=== PATIENT | female | born 1960 | race Caucasian/White ===

== ENCOUNTER 2016-12-23 21:53 | Observation (INO) ==
[2016-12-24] MEDS ORDERED: Vancomycin 1,000 MG in D5% in Water 250 ML IVPB ONE (01:01)
[2016-12-24] MEDS ORDERED: 0.9 % Sodium Chloride 1,000 ML IVC ONE (01:01)
[2016-12-24] MEDS ORDERED: *HR* Morphine 2 MG/ML SYRINGE IVP ONE (01:01)
[2016-12-24] MEDS ORDERED: Ondansetron 4 MG/2 ML VIAL IVP ONE (01:01)
[2016-12-24] MEDS ORDERED: Piperacillin/Tazobactam 3.375 GM in D5% in Water (Mini-Bag+) 100 ML IVPB ONE (01:02)
--- NOTE | 2016-12-24 01:06 | Emergency Department Note ---
Disposition Clinical Impression: Hyperglycemia Cellulitis Qualifiers: Site of cellulitis: extremity Site of cellulitis of extremity: lower extremity Laterality: left Qualified Code(s): L03.116 - Cellulitis of left lower limb Disposition: Admitted As Inpatient Condition: [facility] Time of Disposition: 02:06 General Adult HPI - General Chief complaint: ED Wound/Laceration Stated complaint: Cellulitus [facility] sent her here Time Seen by Provider: 12/24/16 00:27 Source: patient, family Mode of arrival: ambulatory Limitations: no limitations Nursing Notes Reviewed: Yes Vital Signs Reviewed: Yes - History of Present Illness HPI Narrative: 56-year-old female presents for evaluation of left lower leg cellulitis. Patient states his symptoms are approximately a week ago. She has been standing at the [facility]. Patient is been wearing flip-flops. Patient notes worsening pain and redness over the past week. Areas localized the left lower leg. Also notes weeping of the left lower leg over this timeframe. Patient also noted that she stubbed her right toe and noted some redness streaking up the right lower leg. Reports subjective fevers. Denies any other systemic signs or symptoms. Abdominal pain. No chest pain stress of breath. No vomiting. States that she is unclear whether she is a diabetic as she does not follow-up with her primary care doctor. Denies any direct trauma to the left lower leg. Pain Scale: 8 - Related Data Allergies Allergy/AdvReac Type Severity Reaction Status Date / Time No Known Allergies Allergy Verified 12/23/16 22:06 All systems ED: reviewed and negative except as stated. Constitutional: Reports: as per HPI, fever Eyes: Reports: as per HPI ENT ED: Reports: as per HPI Cardiovascular: Reports: as per HPI. Denies: chest pain Respiratory: Reports: as per HPI. Denies: dyspnea Gastrointestinal: Reports: as per HPI. Denies: abdominal pain, nausea, vomiting Genitourinary: Reports: as per HPI Musculoskeletal: Reports: as per HPI Integumentary: Reports: as per HPI Neurological: Reports: as per HPI Psychiatric: Reports: as per HPI Endocrine: Reports: as per HPI Hematological/Lymphatic: Reports: as per HPI Past Medical History - Past Medical History Medical history: Reports: no medical history Psychiatric history: Reports: no psych history - Social History Smoking Status: Current every day smoker Smokeless Tobacco Status: No Alcohol use: Reports: occasionally Drug use: Reports: none Physical Exam - General Limitations: no limitations General appearance: alert, in no apparent distress - Head Head exam: atraumatic, normocephalic, normal inspection - Eye Eye exam: Present: normal appearance, EOMI - ENT ENT exam: normal exam, mucous membranes moist - Neck Neck exam: Present: normal inspection, trachea midline - Chest Chest inspection: Present: normal inspection - Respiratory Respiratory exam: Present: normal lung sounds bilaterally. Absent: respiratory distress - Cardiovascular Cardiovascular exam: Present: regular rate, normal rhythm - Abdominal Exam Abdominal exam: Present: soft, Non-Tender - Expanded Lower Extremity Exam Hip/Pelvis exam: Present: normal inspection Upper leg exam: Present: normal inspection Knee exam: Present: normal inspection Lower leg exam: Present: tenderness, swelling, erythema (Erythema localized to the left lower extremity. Used to track proximally just distal to the knee. Also notes a open wound with purulent drainage on the lateral aspect near the lateral malleolus. Neurovascularly intact. Palpable DPs. Sensation intact with motor of the metatarsals.). Absent: crepitus, Homans' sign Ankle exam: Present: tenderness, swelling, erythema. Absent: crepitus Foot/toe exam: Present: other (Small wound on the right second metatarsal with mild erythema proximally over the dorsum of the foot.) Neurovascular/Tendon exam: Present: normal capillary refill. Absent: pulse deficit, motor deficit, sensory deficit - Back Exam Back exam: Present: normal inspection - Neurological Exam Neurological exam: Present: alert, oriented X3 - Skin Skin exam: Present: warm, dry, intact, normal color Course Course Narrative: Patient seen and examined. The patient appears to have acute cellulitis of the left lower cavity. Noted to be fairly extensive. Actively draining. Patient would likely need IV antibiotics given the degree of cellulitis of her left leg. Patient labs ordered including CBC, electrolytes as well as blood cultures and lactate. Patient treated symptomatically with IV fluids and antiemetics pain control. Disposition admission. - Reevaluation(s) Reevaluation #1: The patient's resting comfortably. Time: 02:11 Vital Signs Temperature 99.0 F 12/23/16 22:06 Pulse Rate 91 12/23/16 22:06 Respiratory Rate 18 12/23/16 22:06 Blood Pressure 136/83 12/23/16 22:06 O2 Sat by Pulse Oximetry 95 09/05/17 22:06 Temperature 99.0 F 12/23/16 22:06 Pulse Rate 87 12/24/16 02:21 Respiratory Rate 16 12/24/16 02:54 Blood Pressure 106/61 12/24/16 02:54 O2 Sat by Pulse Oximetry 97 12/24/16 02:21 Oxygen Delivery Oxygen Delivery Room Air Medical Decision Making - MDM Narrative Medical decision making narrative: 56-year-old female presents for evaluation of left lower leg swelling and concerns for cellulitis. Patient signs and symptoms are consistent with cellulitis. No notable abscess. No crepitus. Is actively draining and weeping in the lateral aspect just proximal to the lateral malleolus. Patient had a plain film of the leg obtained which shows no evidence of subcutaneous gas or osteomyelitis. Patient is not aware if she has any comorbid conditions such as diabetes that she has not seen a primary care physician. Given the degree of the patient's cellulitis the patient would need monitoring as well as IV antibiotics. Patient basically lab work including blood cultures and lactate with IV antibiotics initiated in the ED. The patient was given vancomycin as well as Zosyn. - Lab Data Lab results reviewed: Yes I reviewed the patient's lab results. Result diagrams: 12/24/16 00:57 12/24/16 00:57 Lab Results 12/24/16 12/24/16 12/24/16 Range/Units 00:57 00:57 00:57 WBC 9.1 (4.3-11.1) K/mcL RBC 4.50 (3.82-4.97) M/mcL Hgb 13.1 (11.5-15.4) g/dL Hct 40.3 (35.3-44.9) % MCV 89.6 (83.0-100.0) fL MCH 29.1 (28.0-33.3) pg MCHC 32.5 (31.6-35.5) g/dL RDW 14.6 H (11.5-14.5) % Plt Count 397 (140-400) K/mcL MPV 9.7 (9.4-12.4) fL Immature Gran % 0.4 (0-4) % Seg Neutrophils % 59.7 % Lymphocytes % 29.2 % Monocytes % 9.1 % Eosinophils % 0.8 % Basophils % 0.8 % Neutrophils # 5.4 (1.6-8.9) K/mcL Lymphocytes # 2.7 (0.6-4.6) K/mcL Monocytes # 0.8 (0.0-1.3) K/mcL Eosinophils # 0.1 (0.0-0.6) K/mcL Basophils # 0.1 (0.0-0.2) K/mcL Sodium 142 (136-145) mEq/L Potassium 3.5 (3.5-4.5) mEq/L Chloride 104 (98-109) mEq/L Carbon Dioxide 28 (19-29) mEq/L BUN 4 L (7-20) mg/dL Creatinine 0.82 (0.57-1.11) mg/dL Est GFR ( Amer) > 60 (> 60) Est GFR (Non-Af Amer) > 60 (> 60) BUN/Creatinine Ratio 5 L (6-26) Glucose 127 H (70-99) mg/dL Calculated Osmolality 292 (280-300) Lactic Acid 1.3 (0.5-2.2) mmol/L Calcium 9.6 (8.6-10.8) mg/dL Total Bilirubin 0.5 (0.2-1.2) mg/dL AST 18 (5-34) Units/L ALT 15 (0-55) Units/L Alkaline Phosphatase 87 (38-126) Units/L Serum Total Protein 8.2 (6.0-8.3) g/dL Albumin 2.8 L (3.5-5.0) g/dL Globulin 5.4 H (2.4-3.5) g/dL Albumin/Globulin Ratio 0.5 L (1.1-2.2) - Radiology Data Radiology results reviewed: Yes I reviewed the patient's radiology results. Tibia/Fibula X-Ray 12/24/16 01:03 IMPRESSION: No large areas of soft tissue gas. No underlying osteomyelitis. D/ / Deandre Gunderson MD / Deandre Gunderson MD Interpreting Provider: Deandre Gunderson MD S.B[facility]A.R. - S.B.A.R. Situation: Demographics Background: Presenting Complaint Assessment: Vital Signs, Course and respsone to treatment, Patient/Family Expectation Recommendation: Barrier(s) to disposition, Recommendation based on pending studies, treatments, or consults Gerardo Report Given to: Dr. Chanel Carrillo Repor Time: 02:06 Attestation Statement - Attestation Attestation: I, Sudhir Perez, examined this patient and my medical decision-making was reviewed with the PARTS COUNTERMAN/PA/Advanced Practice Nurse/Resident Physician. I agree with the documented findings, disposition and treatment plan as described except to the extent set forth below. 56-year-old female sent in to the emergency department for concerns of rapidly progressing cellulitis. Patient states that she has had swelling and erythema of the left lower extremity for the past week however it is significantly worsened over the past 24 hours. Patient reports subjective fevers prior to arrival to the emergency department. She denies history of diabetes or other immunocompromising disorders however she does not follow with her primary care provider. Patient started on vancomycin and Zosyn in the emergency department after our initial evaluation. She felt comfortable with the plan for admission to hospital for IV antibiotics.
[2016-12-24 01:14] LABS: Basophils # 0.1 K/mcL (0.0-0.2); Basophils % 0.8 %; Eosinophils # 0.1 K/mcL (0.0-0.6); Eosinophils % 0.8 %; Hematocrit 40.3 % (35.3-44.9); Hemoglobin 13.1 g/dL (11.5-15.4); Immature Granulocytes % 0.4 % (0-4); Lymphocytes # 2.7 K/mcL (0.6-4.6); Lymphocytes % 29.2 %; Mean Corpuscular HGB Conc 32.5 g/dL (31.6-35.5); Mean Corpuscular Hemoglobin 29.1 pg (28.0-33.3); Mean Corpuscular Volume 89.6 fL (83.0-100.0); Mean Platelet Volume 9.7 fL (9.4-12.4); Monocytes # 0.8 K/mcL (0.0-1.3); Monocytes % 9.1 %; Neutrophils # 5.4 K/mcL (1.6-8.9); Platelet Count 397 K/mcL (140-400); Red Cell Distribution Width 14.6 % (11.5-14.5); Segmented Neutrophils % 59.7 %
[2016-12-24 01:22] LABS: Alanine Aminotransferase 15 Units/L (0-55); Albumin 2.8 g/dL (3.5-5.0); Albumin/Globulin Ratio 0.5 (1.1-2.2); Alkaline Phosphatase 87 Units/L (38-126); Aspartate Amino Transferase 18 Units/L (5-34); Bilirubin,Total 0.5 mg/dL (0.2-1.2); Calcium 9.6 mg/dL (8.6-10.8); Carbon Dioxide 28 mEq/L (19-29); Chloride 104 mEq/L (98-109); Globulin 5.4 g/dL (2.4-3.5); Glucose 127 mg/dL (70-99); Osmolality,Calculated 292 (280-300); Potassium 3.5 mEq/L (3.5-4.5); Sodium 142 mEq/L (136-145); Total Protein 8.2 g/dL (6.0-8.3); eGFR For African Americans > 60 (> 60); eGFR For Non-African Americans > 60 (> 60)
[2016-12-24 01:54] LABS: BUN/Creatinine Ratio 5 (6-26)
[2016-12-24 01:57] LABS: Blood Urea Nitrogen 4 mg/dL (7-20)
[2016-12-24] MEDS ORDERED: *HR* Morphine 2 MG/ML SYRINGE IVP PRN (09:40)
[2016-12-24] MEDS ORDERED: Ondansetron 4 MG/2 ML VIAL IVP PRN (09:40)
[2016-12-24] MEDS ORDERED: Naloxone 0.4 MG/ML INJ IVP PRN (09:40)
--- NOTE | 2016-12-24 09:44 | Internal Med History&Physical ---
Date of Encounter: 12/24/16 Time of Encounter: 09:44 Assessment and Plan (1) Cellulitis Current visit: Yes Status: Acute Left leg cellulitis, noted to have low-grade fever of 100.9 overnight but otherwise does not meet sepsis criteria. Received a dose of IV vancomycin and Zosyn in the emergency room. Patient does not have any other risk factors for MRSA at this time. Follow-up blood cultures, send wound culture. We will start IV cefazolin, monitor clinically. Left lower extremity elevation. Pain control with when necessary oxycodone and IV morphine. Left leg x-ray shows no evidence of subcutaneous gas or osteomyelitis. DVT prophylaxis with subcutaneous heparin. Hemoglobin A1c noted to be 5.1%. Qualifiers: Site of cellulitis: extremity Site of cellulitis of extremity: lower extremity Laterality: left Qualified Code(s): L03.116 - Cellulitis of left lower limb Internal Medicine - H&P: HPI Chief complaint: Left leg swelling Admitted From: Emergency Dept Plans for Post Hospital Care: Home History of present illness: Ms. Ruvalcaba is a 56 year old female with no significant past medical history or medical follow-up presents with complaints of redness, pain and swelling in left leg. Patient [place], has been wearing flip-flops but does not remember any injury or stepping on anything sharp. Over the last few days she noticed a shallow ulcer/wound with yellowish orange discharge in the middle of her leg with surrounding redness, swelling and pain which have gradually gotten worse and extended to involve her entire left leg. This was also associated with subjective fever and chills. No nausea, vomiting, diarrhea. It has been getting increasingly difficult to bear weight on left leg or ambulate because of the pain and swelling. Past Med Surg Social Fam HX - Past Medical History Medical history: no medical history Psychiatric history: no psych history - Past Surgical History Surgical History: no surgical history - Social History Smoking Status: Current every day smoker Packs per day: 1-2 Smokeless Tobacco Status: No Alcohol use: occasionally Drug use: none Occupational status: employed Current living situation: Home, With Family Activity Level: Independent ambulation Recent Out of Country Travel Within the Last 8 Weeks: No Exposure or Possible Exposure to Illness During Travel: No - Family History Mother Living Status: Hx Family HEENT Disorders: Yes (COPD) Father Age: 85 Living Status: Still Living Hx Family Endocrine Disorder: Yes (diabetes) Internal Medicine - H&P: Meds No Known Home Drugs 12/24/16 [History] 3 Allergy/AdvReac Type Severity Reaction Status Date / Time No Known Allergies Allergy Verified 12/23/16 22:06 All Systems PM: A 10-system review of systems was performed and is negative for pertinent findings except as documented above in the HPI. - Constitutional Constitutional: chills, fever(s) - EENT Eyes: no change in vision, no discharge, no pain, no photophobia Ears: no ear discharge, no ear pain, no tinnitus Nose, mouth and throat: no dysphagia, no nasal discharge, no neck pain, no sore throat - Cardiovascular Cardiovascular ROS IM: no chest pain, no diaphoresis, no dyspnea, no lightheadedness, no palpitations, no syncope - Respiratory Respiratory: no cough, no dyspnea, no wheezing, no excessive phlegm production - Gastrointestinal Gastrointestinal: no abdominal pain, no diarrhea, no hematemesis, no hematochezia, no melena, no nausea, no vomiting - Genitourinary Genitourinary: no change in urinary stream, no dysuria, no flank pain, no hematuria - Musculoskeletal Musculoskeletal ROS IM: no numbness, no tingling - Integumentary Integumentary IM: erythema, new lesions - Neurological Neurological ROS: no confusion, no convulsions, no focal weakness, no numbness, no tingling, no tremor(s) - Hematologic/Lymphatic Hematologic/Lymphatic: no easy bruising - Constitutional Vitals: Temp Pulse Resp BP Pulse Ox 99 F 82 18 111/70 94 12/24/16 07:05 12/24/16 07:05 12/24/16 07:05 12/24/16 07:05 12/24/16 08:42 General appearance: Present: disheveled, A&O X 3, answers questions appropriately - Respiratory Respiratory exam: Present: CTAB, rhonchi (intermittent scattered rhonchi). Absent: accessory muscle use, rales, wheezes - Cardiovascular Cardiovascular exam: Present: RRR, +S1, +S2, tachycardia. Absent: diastolic murmur, gallop, rubs, systolic murmur - GI/Abdominal GI/Abdominal exam: Present: normal bowel sounds, soft, no peritoneal signs. Absent: distended, tenderness - Extremities Exam Extremities exam: Present: full ROM, pedal edema (left leg), warm, radial pulses palpable and symmetrical. Absent: calf tenderness, cyanotic Additional comments: Left lateral leg with shallow ulcer, minimal serous discharge, surrounding erythema, warmth, tenderness extending upto knee; foot excluded - Neurological Exam Neurological exam: Present: CN II-XII intact, oriented X3, no focal deficits. Absent: pronater drift, facial droop, speech deficit - Skin Skin exam: Present: dry, intact Internal Med - H&P Results - Labs CBC & Chem 7: 12/24/16 00:57 12/24/16 00:57
[2016-12-24] MEDS: ceFAZolin 1,000 MG in D5% in Water (Mini-Bag+) 100 ML IVPB SCH ×2 (10:01→17:23)
[2016-12-24] MEDS: *HR* OxyCODONE Immed Rel 5 MG TABLET PO PRN ×3 (10:02→23:31)
[2016-12-24] MEDS: 0.9 % Sodium Chloride 1,000 ML IVC SCH ×2 (10:02→20:29)
[2016-12-24] MEDS: Nicotine 21 MG PATCH.TD24 TD SCH (10:02)
[2016-12-24 10:15] LABS: Hemoglobin A1C 5.1 %
[2016-12-24] MEDS: Ipratropium/Albuterol Neb 3 ML IH SCH ×3 (11:37→22:41)
[2016-12-24] MEDS: *HR* Heparin 5,000 UNIT/ML VIAL SQ SCH ×2 (14:28→20:28)
[2016-12-25] MEDS: ceFAZolin 1,000 MG in D5% in Water (Mini-Bag+) 100 ML IVPB SCH ×2 (02:02→09:03)
[2016-12-25] MEDS: Ipratropium/Albuterol Neb 3 ML IH SCH ×4 (03:44→22:21)
[2016-12-25] MEDS: *HR* Heparin 5,000 UNIT/ML VIAL SQ SCH ×3 (05:17→21:51)
[2016-12-25 06:00] LABS: Basophils # 0.1 K/mcL (0.0-0.2); Basophils % 1.2 %; Eosinophils # 0.1 K/mcL (0.0-0.6); Eosinophils % 2.3 %; Hematocrit 34.4 % (35.3-44.9); Immature Granulocytes % 0.3 % (0-4); Lymphocytes # 2.5 K/mcL (0.6-4.6); Lymphocytes % 41.6 %; Mean Corpuscular HGB Conc 32.3 g/dL (31.6-35.5); Mean Corpuscular Hemoglobin 29.9 pg (28.0-33.3); Mean Corpuscular Volume 92.7 fL (83.0-100.0); Mean Platelet Volume 9.9 fL (9.4-12.4); Monocytes # 0.5 K/mcL (0.0-1.3); Monocytes % 8.9 %; Neutrophils # 2.8 K/mcL (1.6-8.9); Platelet Count 314 K/mcL (140-400); Red Blood Count 3.71 M/mcL (3.82-4.97); Red Cell Distribution Width 14.8 % (11.5-14.5); Segmented Neutrophils % 45.7 %
[2016-12-25 06:05] LABS: Hemoglobin 11.1 g/dL (11.5-15.4)
[2016-12-25 06:18] LABS: BUN/Creatinine Ratio 5 (6-26); Calcium 8.7 mg/dL (8.6-10.8); Carbon Dioxide 26 mEq/L (19-29); Chloride 109 mEq/L (98-109); Chol/HDL Ratio 2.9 (0-4.9); Cholesterol 120 mg/dL (< 200); Glucose 96 mg/dL (70-99); HDL Cholesterol 41 mg/dL (40-59); LDL Cholesterol,Calculated 67 mg/dL (0-99); Osmolality,Calculated 287 (280-300); Potassium 4.2 mEq/L (3.5-4.5); Sodium 140 mEq/L (136-145); Triglycerides 59 mg/dL (< 150); eGFR For African Americans > 60 (> 60); eGFR For Non-African Americans > 60 (> 60)
[2016-12-25 06:20] LABS: Blood Urea Nitrogen 4 mg/dL (7-20)
[2016-12-25] MEDS: *HR* OxyCODONE Immed Rel 5 MG TABLET PO PRN ×3 (06:29→21:50)
[2016-12-25] MEDS: Nicotine 21 MG PATCH.TD24 TD SCH (09:03)
--- NOTE | 2016-12-25 10:43 | Internal Med Progress Note ---
<Yair Mohr - Last Filed: 12/25/16 16:04> Date of Encounter: 12/25/16 - Constitutional Vitals: Temp Pulse Resp BP Pulse Ox 98.2 F 63 18 106/68 97 12/25/16 15:21 12/25/16 15:21 12/25/16 15:21 12/25/16 15:21 12/25/16 15:21 Internal Medicine: Result - Labs CBC & Chem 7: 12/25/16 05:39 12/25/16 05:39 Labs: Short CBC 12/25/16 Range/Units 05:39 WBC 6.1 (4.3-11.1) K/mcL Hgb 11.1 L D (11.5-15.4) g/dL Hct 34.4 L (35.3-44.9) % Plt Count 314 (140-400) K/mcL Neutrophils # 2.8 (1.6-8.9) K/mcL BMP 12/25/16 05:39 Sodium 140 Potassium 4.2 Chloride 109 Carbon Dioxide 26 BUN 4 L Creatinine 0.74 Glucose 96 Calcium 8.7 Consult Discharge Plan - Plan Referrals: NONE,PCP [Primary Care Provider] - - Attending Attestation I have independently seen and examined this patient on 12/25/16. I have reviewed the EMR. Plan of management has been discussed with the patient and resident. Seen and evaluated at bedside She has no PMH and is being managed for LLE cellulitis without abscess She denies hx of trauma preceding the symptoms but has had cellulitis at the exact spot on the same limb. She is not diabetic Physical exam: VSS, HEENT: Normal, Chest is CTAB, abdomen is soft and not tender. LLE exam: Diffuse erythema and swelling with tenderness of the LLE, spaning from her knees to her ankles, mildly tender, 2 shallow ulcers on the lateral and posterior surfaces draining purulent discharge, not foul smelling, with granulation tissue. Distal extremities well perfused. labs and Imaging reviewed: Unremarkable. A/P: Cellulitis. Repeat wound culture. D/C cefazolin, switch to Clindamycin for MRSA coverage. Patient denies rheumatologic or hematologic disease, A1C is 5.1 Follow wound culture rest of details as in resident physician's documentation <Korin Fontana - Last Filed: 12/25/16 16:59> Date of Encounter: 12/25/16 Time of Encounter: 10:40 - Assessment and plan (1) Cellulitis Current Visit: Yes Status: Acute Assessment and plan: Patient has left lower extremity cellulitis with an superficial ulcer. Patient Initially given Vanco in the ED and started on Cefazolin. We will switch to clindamycin 300mg IV q8h for MRSA coverage. Plan: - Clindamycin 300mg IV q8h - d/c Cefazolin Qualifiers: Site of cellulitis: extremity Site of cellulitis of extremity: lower extremity Laterality: left Qualified Code(s): L03.116 - Cellulitis of left lower limb - Subjective Interval history: Patient is a 55-year-old female known past medical history presented to the ED and with left lower leg swelling and redness for about 1 week and shows admitted for left lower leg cellulitis. Patient mentioned having chills a week prior to symptom onset. Patient mentions that her lower leg had an ulcer infection about a year ago but has not had any problems with her left lower extremity since and has not had previous cellulitis. Patient does walk around barefooted frequently. Today patient was feeling less pain. Denies N, V. - Constitutional Vitals: Temp Pulse Resp BP Pulse Ox 98.7 F 79 16 105/69 98 12/25/16 07:00 12/25/16 07:00 12/25/16 10:23 12/25/16 07:00 12/25/16 10:23 General appearance: Present: disheveled, A&O X 3, answers questions appropriately Exam: Constitutional: Alert, in no acute distress, well nourished, well developed. Head: Normocephalic, atraumatic, normal contour and symmetric, no masses, lesions or scars Heart: Normal, regular rate and rhythm, no murmurs Lungs: Clear to auscultation, no wheezes, rales, or rhonchi Abdomen: Soft, nondistended, nontender, and no masses palpable, bowel sounds present and normal, no guarding or rigidity. Extremities: L lower extremity redness from ankle to just below the tibial plateau, multiple small wounds with scabs and 2 open wounds on the lateral posterior side of her lower leg, about 2cm in diameter each with purulent discharge with granulation tissue surrounding, No clubbing, cyanosis, or edema , radial pulse +2/4, capillary refill <2sec. Skin: Skin warm and dry, no lesions, no rashes, no jaundice Neurologic: Cranial nerves II through XII grossly intact, no focal deficits, strength within normal limits in all extremities Psych: Cooperative with exam, good eye contact, cognitive function intact, judgment good insight good, speech clear, thought process logical, and goal directed Internal Medicine: Result - Labs CBC & Chem 7: 12/25/16 05:39 12/25/16 05:39 Labs: Short CBC 12/25/16 Range/Units 05:39 WBC 6.1 (4.3-11.1) K/mcL Hgb 11.1 L D (11.5-15.4) g/dL Hct 34.4 L (35.3-44.9) % Plt Count 314 (140-400) K/mcL Neutrophils # 2.8 (1.6-8.9) K/mcL BMP 12/25/16 05:39 Sodium 140 Potassium 4.2 Chloride 109 Carbon Dioxide 26 BUN 4 L Creatinine 0.74 Glucose 96 Calcium 8.7
[2016-12-25] MEDS: Acetaminophen 325 MG TABLET PO PRN (10:52)
[2016-12-26] MEDS: Clindamycin 300 MG in D5% in Water 50 ML IVPB SCH ×3 (00:41→16:38)
[2016-12-26] MEDS: Ipratropium/Albuterol Neb 3 ML IH SCH ×4 (03:34→22:33)
[2016-12-26] MEDS: *HR* OxyCODONE Immed Rel 5 MG TABLET PO PRN ×3 (04:26→23:02)
[2016-12-26] MEDS: *HR* Heparin 5,000 UNIT/ML VIAL SQ SCH ×3 (05:38→23:00)
[2016-12-26 07:04] LABS: BUN/Creatinine Ratio 8 (6-26); Basophils # 0.1 K/mcL (0.0-0.2); Basophils % 1.1 %; Carbon Dioxide 27 mEq/L (19-29); Chloride 108 mEq/L (98-109); Eosinophils # 0.2 K/mcL (0.0-0.6); Eosinophils % 2.8 %; Glucose 91 mg/dL (70-99); Hematocrit 33.7 % (35.3-44.9); Immature Granulocytes % 0.4 % (0-4); Lymphocytes # 2.2 K/mcL (0.6-4.6); Mean Corpuscular HGB Conc 32.6 g/dL (31.6-35.5); Mean Corpuscular Hemoglobin 30.1 pg (28.0-33.3); Mean Corpuscular Volume 92.1 fL (83.0-100.0); Mean Platelet Volume 10.1 fL (9.4-12.4); Monocytes # 0.4 K/mcL (0.0-1.3); Monocytes % 7.4 %; Neutrophils # 2.6 K/mcL (1.6-8.9); Osmolality,Calculated 291 (280-300); Platelet Count 323 K/mcL (140-400); Potassium 4.3 mEq/L (3.5-4.5); Red Blood Count 3.66 M/mcL (3.82-4.97); Red Cell Distribution Width 14.7 % (11.5-14.5); Segmented Neutrophils % 48.3 %; Sodium 142 mEq/L (136-145); eGFR For African Americans > 60 (> 60); eGFR For Non-African Americans > 60 (> 60)
[2016-12-26 07:08] LABS: Blood Urea Nitrogen 5 mg/dL (7-20)
[2016-12-26] MEDS: Acetaminophen 325 MG TABLET PO PRN ×2 (08:00→17:19)
[2016-12-26] MEDS: Nicotine 21 MG PATCH.TD24 TD SCH (11:13)
--- NOTE | 2016-12-26 14:38 | Internal Med Progress Note ---
<Korin Fontana - Last Filed: 12/26/16 14:33> Date of Encounter: 12/26/16 Time of Encounter: 10:00 - Assessment and plan (1) Cellulitis Current Visit: Yes Status: Acute Assessment and plan: Patient has left lower extremity cellulitis with an superficial ulcer. Patient Initially given Vanco in the ED and started on Cefazolin. We will switch to clindamycin 300mg IV q8h for MRSA coverage. Final culture result of initial sample shows group G strep and staph moses. Sensitivities still pending and final for second wound culture still pending. Will wait for sensitivities before changing antibiotics. Consulted wound care today for education. Plan: - Clindamycin 300mg IV q8h - d/c Cefazolin 12/25 - awaiting sensitivities and final wound culture fore 2nd culture - education for wound care Dispo: Can discharge home with self care of wound, but awaiting sensitivities before discharge. Qualifiers: Site of cellulitis: extremity Site of cellulitis of extremity: lower extremity Laterality: left Qualified Code(s): L03.116 - Cellulitis of left lower limb - Subjective Interval history: Patient is a 55-year-old female known past medical history presented to the ED and with left lower leg swelling and redness for about 1 week and shows admitted for left lower leg cellulitis. Patient mentioned having chills a week prior to symptom onset. Patient mentions that her lower leg had an ulcer infection about a year ago but has not had any problems with her left lower extremity since and has not had previous cellulitis. Patient does walk around barefooted frequently. Today patient was feeling less pain, decrease swelling, and redness. She states that she is able to do wound care at home as she has done it in the past. Denies N, V. - Constitutional Vitals: Temp Pulse Resp BP Pulse Ox 97.8 F 80 17 105/68 97 12/26/16 12:11 12/26/16 12:11 12/26/16 12:11 12/26/16 12:11 12/26/16 12:11 General appearance: Present: A&O X 3, answers questions appropriately Exam: Constitutional: Alert, in no acute distress, well nourished, well developed. Head: Normocephalic, atraumatic, normal contour and symmetric, no masses, lesions or scars Heart: Normal, regular rate and rhythm, no murmurs Lungs: Clear to auscultation, no wheezes, rales, or rhonchi Abdomen: Soft, nondistended, nontender, and no masses palpable, bowel sounds present and normal, no guarding or rigidity. Extremities: decrease swelling and redness today as L lower extremity redness from upper ankle to 3 inches below the tibial plateau, multiple small wounds with scabs and 2 open wounds on the lateral posterior side of her lower leg, about 2cm in diameter each with purulent discharge with granulation tissue surrounding, skin shinny with flaking on throughout L anterior cedeno, No clubbing, cyanosis, or edema, radial pulse +2/4, capillary refill <2sec. Skin: Skin warm and dry, no lesions, no rashes, no jaundice Neurologic: Cranial nerves II through XII grossly intact, no focal deficits, strength within normal limits in all extremities Psych: Cooperative with exam, good eye contact, cognitive function intact, judgment good insight good, speech clear, thought process logical, and goal directed Internal Medicine: Result - Labs CBC & Chem 7: 12/26/16 06:42 12/26/16 06:42 Labs: Short CBC 12/26/16 Range/Units 06:42 WBC 5.4 (4.3-11.1) K/mcL Hgb 11.0 L (11.5-15.4) g/dL Hct 33.7 L (35.3-44.9) % Plt Count 323 (140-400) K/mcL Neutrophils # 2.6 (1.6-8.9) K/mcL BMP 12/26/16 06:42 Sodium 142 Potassium 4.3 Chloride 108 Carbon Dioxide 27 BUN 5 L Creatinine 0.66 Glucose 91 Calcium 9.0 Consult Discharge Plan - Plan Referrals: NONE,PCP [Primary Care Provider] - <Yair Mohr - Last Filed: 12/26/16 15:10> Date of Encounter: 12/26/16 - Constitutional Vitals: Temp Pulse Resp BP Pulse Ox 97.8 F 80 17 105/68 97 12/26/16 12:11 12/26/16 12:11 12/26/16 12:11 12/26/16 12:11 12/26/16 12:11 Internal Medicine: Result - Labs CBC & Chem 7: 12/26/16 06:42 12/26/16 06:42 Labs: Short CBC 12/26/16 Range/Units 06:42 WBC 5.4 (4.3-11.1) K/mcL Hgb 11.0 L (11.5-15.4) g/dL Hct 33.7 L (35.3-44.9) % Plt Count 323 (140-400) K/mcL Neutrophils # 2.6 (1.6-8.9) K/mcL BMP 12/26/16 06:42 Sodium 142 Potassium 4.3 Chloride 108 Carbon Dioxide 27 BUN 5 L Creatinine 0.66 Glucose 91 Calcium 9.0 - Attending Attestation I have independently seen and examined this patient on 12/26/16. I have reviewed the EMR. Plan of management has been discussed with the patient and resident. Seen and evaluated at bedside She has no PMH and is being managed for LLE cellulitis without abscess. Wound culture is growing staph aureus and Strep agalactiae She reports feeling improvement Her LLE looks less erythematous and edema is less. She still has purulent discharge Physical exam: VSS, HEENT: Normal, Chest is CTAB, abdomen is soft and not tender. labs and Imaging reviewed: Unremarkable. A/P: MRSA and Strep Cellulitis. Continue Clindamycin. Follow final culture report and sensitivity. pain control rest of details as in resident physician's documentation
[2016-12-26] MEDS: Silvasorb 44.4 ML TUBE TP SCH (16:42)
[2016-12-27] MEDS: Clindamycin 300 MG in D5% in Water 50 ML IVPB SCH ×2 (00:46→08:58)
[2016-12-27] MEDS: Ipratropium/Albuterol Neb 3 ML IH SCH ×2 (03:37→09:32)
[2016-12-27 04:49] LABS: Basophils # 0.1 K/mcL (0.0-0.2); Basophils % 1.1 %; Eosinophils # 0.1 K/mcL (0.0-0.6); Eosinophils % 2.1 %; Hematocrit 33.9 % (35.3-44.9); Hemoglobin 10.9 g/dL (11.5-15.4); Immature Granulocytes % 0.2 % (0-4); Lymphocytes # 2.2 K/mcL (0.6-4.6); Lymphocytes % 38.4 %; Mean Corpuscular HGB Conc 32.2 g/dL (31.6-35.5); Mean Corpuscular Hemoglobin 29.7 pg (28.0-33.3); Mean Corpuscular Volume 92.4 fL (83.0-100.0); Mean Platelet Volume 10.3 fL (9.4-12.4); Monocytes # 0.4 K/mcL (0.0-1.3); Monocytes % 6.7 %; Platelet Count 355 K/mcL (140-400); Red Blood Count 3.67 M/mcL (3.82-4.97); Segmented Neutrophils % 51.5 %
[2016-12-27 05:00] LABS: BUN/Creatinine Ratio 10 (6-26); Blood Urea Nitrogen 7 mg/dL (7-20); Calcium 8.8 mg/dL (8.6-10.8); Carbon Dioxide 28 mEq/L (19-29); Chloride 109 mEq/L (98-109); Glucose 83 mg/dL (70-99); Osmolality,Calculated 293 (280-300); Potassium 4.1 mEq/L (3.5-4.5); Sodium 143 mEq/L (136-145); eGFR For African Americans > 60 (> 60); eGFR For Non-African Americans > 60 (> 60)
[2016-12-27] MEDS: *HR* Heparin 5,000 UNIT/ML VIAL SQ SCH (06:21)
[2016-12-27] MEDS: *HR* OxyCODONE Immed Rel 5 MG TABLET PO PRN ×2 (06:25→13:39)
[2016-12-27] MEDS: Nicotine 21 MG PATCH.TD24 TD SCH (08:58)
[2016-12-27 10:29] VITALS: BP 110/71
--- NOTE | 2016-12-27 11:27 | Discharge Summary ---
Date of Encounter: 12/27/16 Time of Encounter: 11:25 - Discharge Diagnosis (1) Cellulitis Priority: Primary Status: Acute Qualifiers: Site of cellulitis: extremity Site of cellulitis of extremity: lower extremity Laterality: left Qualified Code(s): L03.116 - Cellulitis of left lower limb - Discharge Medications Prescriptions: Acetaminophen [Tylenol] 650 mg PO Q6HR PRN #20 tab PRN Reason: Mild Pain (1-3) Clindamycin HCl [Cleocin HCl] 300 mg PO TID #15 cap Silvasorb 1 appl TP DAILY #2 tub Home Medications: Acetaminophen [Tylenol] 650 mg PO Q6HR PRN #20 tab 12/27/16 [Rx] Clindamycin HCl [Cleocin HCl] 300 mg PO TID #15 cap 12/27/16 [Rx] Silvasorb 1 appl TP DAILY #2 tub 12/27/16 [Rx] Allergies/Adverse Reactions: 3 Allergy/AdvReac Type Severity Reaction Status Date / Time No Known Allergies Allergy Verified 12/23/16 22:06 Date of admission: 12/24/16 02:26 Primary care physician: PCP NONE Consults: 12/26/16 11:44 Consult to Wound Care [CONS] Stat Reason for Consult: education for wound care Time Notified: 11:46 Call Completed: No Discharging clinician: Yair Mohr Anticipated date of discharge: 12/27/16 - Patient Status Disposition: Home, Self-Care Condition: Good Functional capacity at discharge: independent ambulation Overall status at discharge: patient is back to baseline - Discharge Instructions Follow Up With: NONE,PCP [Primary Care Provider] - Additional Instructions: COMPLETE 5 MORE DAYS OF ANTIBIOTICS ESTABLISH PCP AT [facility] FOLLOW UP WITH PCP - Diet and Activity Activity: resume usual activities as tolerated Diet: regular diet Interval History: See below Hospital course: Ms. Ruvalcaba is a 56 year old female with no past medical history who presented with complaints of left lower extremity wounds and ulcers following working at the [employer]. She previously denied a history of trauma, however she states she is not sure that she did not have trauma. She also is not a known diabetic. She denies IV drug use. She denies any hematological abnormalities or rheumatologic diseases. She is a smoker with a 1-2 packs per day history. Upon admission, she was not septic however, she had left lower extremity with multiple ulcers that were having purulent discharges. She was initially started on cefazolin, however due to the purulent nature of purulence of her discharge, she was started on clindamycin. A1c was normal, CBC and chemistry have been normal throughout her hospital stay. She has no abscess collection. Wound culture revealed Streptococcus agalactiae and methicillin sensitive staph aureus. Sensitive to current antibiotic. She has clinically improved with clindamycin and is stable to be discharged home to continue clindamycin by mouth. She was reviewed by wound care nurse, and she will continue to do her own dressing at home. She has no primary care physician and has been encouraged to make an appointment to follow up with primary care. Tobacco cessation counseling done for 4 minutes. Time spent discussing smoking cessation with patient: 3 to 10 minutes - Time Spent with Patient Total time spent providing and/or coordinating discharge services: Less than 30 minutes - Constitutional Vitals: Temp Pulse Resp BP Pulse Ox 97.5 F L 86 16 110/71 99 12/27/16 10:28 12/27/16 10:28 12/27/16 10:28 12/27/16 10:28 12/27/16 10:28 Physical exam: VSS, HEENT: Normal, Chest is CTAB, abdomen is soft and not tender. LLE exam: Erythema and swelling of LLE very improved, , shallow ulcers with minimal discharge. Pulses present General appearance: Present: A&O X 3, answers questions appropriately
[2016-12-27] MEDS: Silvasorb 44.4 ML TUBE TP SCH (13:39)
== END 2016-12-27 17:01 | disposition home or self-care (01) ==
LOC: EMEROO 21:53 → 3NENU 21:53 → SUATTDRO 12-24 02:26 → 3NENU 12-24 03:13
PROVIDERS: ADMIT Internal Medicine; ATTEND Internal Medicine